=== PATIENT | male | born 1960 | race Caucasian/White ===

== ENCOUNTER 2020-12-21 11:25 | Emergency (ER) | payer OTHER ==
[~2020-12-21] VITALS: Ht 177.8 cm; Wt 83.9 kg
[2020-12-21] MEDS ORDERED: HYDR1TAB94 PO (12:29)
[2020-12-21] MEDS ORDERED: CEPH500 PO (12:29)
== END 2020-12-21 13:52 | disposition home or self-care (01) ==
LOC: ER 11:25
DX: S67.195A Crushing injury of left ring finger, initial encounter (principal); S62.635B Displaced fracture of distal phalanx of left ring finger, initial encounter for open fracture; W20.8XXA Other cause of strike by thrown, projected or falling object, initial encounter; Y92.89 Other specified places as the place of occurrence of the external cause; Y99.0 Civilian activity done for income or pay
CPT/HCPCS: 12002; 73130; 96372-59; 99283-25; A9270; J0690